=== PATIENT | female | born 1975 | race Caucasian/White ===

== ENCOUNTER 2019-09-09 08:51 | Outpatient (CLI) | payer SELFPAY ==
--- NOTE | 2019-09-09 08:58 | US_ITS ---
WS: [id number] RIGHT UPPER QUADRANT ULTRASOUND HISTORY: CHRONIC HEPATITIS C W/O HEPATIC COMA COMPARISON: None available. Liver: 14.7 cm in length. Normal size and echogenicity with no intrahepatic dilatation. No mass. Gallbladder: Prior cholecystectomy. CBD: 4.2 mm Pancreas: Normal size and echogenicity. Right kidney: 12.1 cm in length. Normal echogenicity with no mass or hydronephrosis. Aorta and IVC: Unremarkable. No ascites. US/US gall bladder [id number] IMPRESSION: 1. Prior cholecystectomy. 2. No bile duct dilatation.
== END 2019-09-09 08:52 | disposition home or self-care (01) ==
LOC: RAD 08:55
PROVIDERS: Family Provider Nurse Practitioner; PCP Nurse Practitioner; Visit Provider Internal Medicine
DX: B18.2 Chronic viral hepatitis C (principal); Z90.49 Acquired absence of other specified parts of digestive tract
CPT/HCPCS: 76705

== ENCOUNTER 2019-09-15 15:53 | Outpatient (CLI) | payer OTHER, SELFPAY ==
--- NOTE | 2019-09-15 17:02 | XR_ITS ---
WS: [id number] Chest 2 views, 09/15/2019 Clinical Data: POSITIVE PPD SKIN TEST Comparison: Portable chest, 06/23/2019. Findings: No nodules, masses or effusions are seen. The heart is normal. The pulmonary vascularity is not increased. No pneumonia or pneumothorax is seen. There are calcified granulomas in both lungs. XR/XR chest 2V* [id number] Impression: Negative chest.
== END 2019-09-15 15:54 | disposition home or self-care (01) ==
LOC: RAD 15:54
PROVIDERS: Family Provider Nurse Practitioner; PCP Nurse Practitioner; Visit Provider Nurse Practitioner
DX: R76.11 Nonspecific reaction to tuberculin skin test without active tuberculosis (principal); R05 Cough
CPT/HCPCS: 71046

== ENCOUNTER → 2019-09-20 15:54 | Outpatient (BNVA) | payer OTHER, SELFPAY | PROVIDERS: Family Provider Nurse Practitioner; PCP Nurse Practitioner; Visit Provider Nurse Practitioner Family | DX: Z20.1 Contact with and (suspected) exposure to tuberculosis (principal) | CPT/HCPCS: 80053; 85025 ==

== ENCOUNTER 2019-10-20 17:03 | Emergency (ER) | payer SELFPAY ==
--- NOTE | 2019-10-20 17:40 | CTR_ITS ---
PROCEDURE INFORMATION: Exam: CT Head Without Contrast Exam date and time: 10/20/2019 6:05 PM Age: 44 years old Clinical indication: Injury or trauma; Fall; Initial encounter; Concussion / head injury; Without loss of consciousness TECHNIQUE: Imaging protocol: Computed tomography of the head without contrast. Total DLP: 1742.21 mGy-cm Radiation optimization: All CT scans at this facility use at least one of these dose optimization techniques: automated exposure control; mA and/or kV adjustment per patient size (includes targeted exams where dose is matched to clinical indication); or iterative reconstruction. COMPARISON: CT head wo con* [id number] 06/23/2019 3:17 PM FINDINGS: Brain: Normal. No hemorrhage. Unremarkable white matter. No mass effect. Ventricles: Normal. No ventriculomegaly. Bones/joints: Unremarkable. No acute fracture. Sinuses: There is mild mucosal thickening in the sinuses. Mastoid air cells: Visualized mastoid air cells are well aerated. Soft tissues: Unremarkable. CT/CT head wo con* [id number] IMPRESSION: No acute intracranial abnormality. Radiation Dose CTDIVOL = (mGy): DLP = 1742.21 (mGy-cm)
[2019-10-20 18:00] LABS: Basophils # 0.1 10^3/uL (0.0-0.1); Eosinophils # 0.4 10^3/uL (0.0-0.8); Eosinophils % 5.5 %; Hematocrit 37.1 % (37.0-47.0); Hemoglobin 11.7 g/dL (11.5-15.3); Lymphocytes # 1.7 10^3/uL (0.8-4.8); Lymphocytes % 24.9 %; Mean Corpuscular HGB Conc 31.5 g/dL (30.0-36.0); Mean Corpuscular Hemoglobin 23.2 pg (28.0-34.0); Mean Corpuscular Volume 73.6 fL (81-99); Mean Platelet Volume 10.2 fL (7.4-10.4); Monocytes # 0.7 10^3/uL (0.2-0.9); Monocytes % 10.4 %; Neutrophils # 3.9 10^3/uL (1.8-7.7); Neutrophils % 58.1 %; Nucleated Red Blood Cells % 0 %; Platelet Count 425 10^3/cmm (130-400); Red Blood Count 5.04 10^6/uL (4.1-5.3); Red Cell Distribution Width 17.2 % (12.1-15.1); White Blood Count 6.7 10^3/uL (4.0-10.0)
[2019-10-20 18:06] VITALS: BP 126/102; PULSE 103; RESP 16; O2SAT 97; BMI 35.5
[2019-10-20 18:15] LABS: Alanine Aminotransferase 68 U/L (0-33); Albumin Level 4.6 g/dL (3.5-5.2); Alkaline Phosphatase 78 IU/L (35-105); Anion Gap 18.8 (5-19); Aspartate Amino Transferase 46 U/L (0-32); Blood Urea Nitrogen 8 mg/dL (6-20); Calcium 9.6 mg/dL (8.5-10.5); Carbon Dioxide 20 mmol/L (22-29); Chloride 104 mmol/L (98-107); Creatinine Clr Calc Pharmacy 124.7781; Globulin 3.7 g/dL (1.3-4.6); Glomerular Filtration Rate 91.8 mL/min (90-130); Glucose 117 mg/dL (65-115); Lipase 19 U/L (13-60); Potassium 3.8 mmol/L (3.5-5.1); Sodium 139 mmol/L (136-145); Total Bilirubin 0.3 mg/dL (0.15-1.2); Total Protein 8.3 g/dL (6.6-8.7)
[2019-10-20] MEDS: ondansetron 2 mg/ML SDV 2 mL 4 MG IVP (18:16)
[2019-10-20] MEDS: sodium chloride 0.9% 1,000 ML 999 ML IV ×2 (18:16→18:18)
[2019-10-20 18:24] VITALS: BP 165/100; PULSE 92; RESP 18; TEMP 37.4; O2SAT 98
--- NOTE | 2019-10-20 18:24 | W.ED.GENADLT ---
HPI - General Adult General: Chief complaint: General Medical Stated complaint: Dehydration Time Seen by Provider: 10/20/19 17:40 Source: patient Mode of arrival: ambulatory Limitations: no limitations History of Present Illness: HPI narrative: 44-year-old female that was recently diagnosed with possible tuberculosis. She states that she is started on meds for TB and they have been making her ill. She states she had decreased appetite along with nausea and feels like she is very dehydrated. She was sent here for IV fluids. Patient while waiting room had a seizure. She states she does have a history of seizures. Patient is currently postictal and a slight confusion but is able answer all my questions. She did hit her head when she had a seizure. Denies any worsening or improving factors. Associated symptoms: Reports confusion, nausea and vomiting; Deny chest pain, dyspnea, headache(s) or rash Review of Systems Const: Denies: fever, chills, body aches or change in appetite Eyes: Denies: blurry vision or eye discomfort ENMT: Denies: throat pain or dental pain Card: Denies: chest pain Resp: Denies: shortness of breath GI: Reports: nausea and vomiting; Denies: abdominal pain or diarrhea : Denies: painful urination Musc: Denies: neck pain or back pain Skin/Breast: Denies: rash Neuro: Reports: confusion; Denies: headache Psych: Denies: depression Satish/Lymph: Denies: easy bruising All/Imm: Denies: hives PFSH ED PFSH: Family History Family/Other Brain aneurysm Father Hypertension Social History Smoking and tobacco status: current every day smoker cigarettes Packs smoked per day: 0.5 Years cigarettes smoked: 35 Second hand smoke exposure: No Alcohol intake: never Lives independently: Yes Household members: significant other Housing: House Marital status: Legally service: No Current occupational status: employed Current occupation: [employer] Current occupational exposures/hazards: Yes History of recent travel: No Current gender identity: Female Physical Exam Const: COMMON NORMALS: no apparent distress, oriented x3 and healthy appearing HENMT: COMMON NORMALS: normocephalic and head/scalp atraumatic HEAD & SCALP: normocephalic and atraumatic Eye: COMMON NORMALS: PERRL and EOMs intact bilaterally PUPIL: Yes PERRL Neck/C-Spine: COMMON NORMALS: full ROM and supple Chest: COMMONS NORMALS: inspection of chest normal and palpation of chest normal Resp: COMMON NORMALS: normal respiratory effort, no retractions, no use of accessory muscles and clear to auscultation bilaterally AUSCULTATION: clear to auscultation bilaterally Cardio: COMMON NORMALS: regular rate, regular rhythm and no murmurs RATE: regular rate RHYTHM: regular rhythm GI: COMMON NORMALS: normal to inspection, nondistended, normoactive bowel sounds, soft to palpation, non-tender and no masses PALPATION: Yes soft Extremity: COMMON NORMALS: normal to inspection and full ROM Neuro: COMMON NORMALS: oriented x3, moves all extremities and no focal motor deficits Psych: COMMON NORMALS: mental status grossly normal, thought process normal and cooperative THOUGHT PROCESS: normal thought process Skin: COMMON NORMALS: no rashes or lesions noted and no wounds GENERAL SKIN EXAM: no rashes or lesions noted Course Vital Signs: Vital signs: Vital Signs Temperature 99.4 F 10/20/19 18:24 Pulse Rate 80 10/20/19 20:40 Respiratory Rate 19 H 10/20/19 20:40 Blood Pressure 161/79 10/20/19 20:40 Pulse Oximetry 96 10/20/19 20:40 MDM - General Adult MDM Narrative: Medical decision making narrative: Patient presents here with nausea and vomiting likely due to her medications treating her possible TB. Patient feels much improved here after IV fluids. She also had a seizure in the waiting room and has a history of seizures. Patient's blood work and CT head are normal. She had a headache after a seizure that is likely from her seizure. Patient is to follow-up with primary care doctor in 3 to 5 days return if worsening. Lab Data: Labs: Lab Results 10/20/19 10/20/19 Range/Units 17:45 17:45 WBC 6.7 (4.0-10.0) 10^3/ uL RBC 5.04 (4.1-5.3) 10^6/u L Hgb 11.7 (11.5-15.3) g/dL Hct 37.1 (37.0-47.0) % MCV 73.6 L (81-99) fL MCH 23.2 L (28.0-34.0) pg MCHC 31.5 (30.0-36.0) g/dL RDW 17.2 H (12.1-15.1) % Plt Count 425 H (130-400) 10^3/c mm MPV 10.2 (7.4-10.4) fL Neut % (Auto) 58.1 % Lymph % (Auto) 24.9 % [place] % (Auto) 10.4 % Eos % (Auto) 5.5 % Baso % (Auto) 1.0 % Neut # (Auto) 3.9 (1.8-7.7) 10^3/u L Lymph # (Auto) 1.7 (0.8-4.8) 10^3/u L [place] # (Auto) 0.7 (0.2-0.9) 10^3/u L Eos # (Auto) 0.4 (0.0-0.8) 10^3/u L Baso # (Auto) 0.1 (0.0-0.1) 10^3/u L Nucleated RBC % (a uto) 0 % Nucleated RBCs # 0.0 /100WBC Sodium 139 (136-145) mmol/L Potassium 3.8 (3.5-5.1) mmol/L Chloride 104 (98-107) mmol/L Carbon Dioxide 20 L (22-29) mmol/L Anion Gap 18.8 (5-19) BUN 8 (6-20) mg/dL Creatinine 0.7 (0.5-0.9) mg/dL GFR Calculation 91.8 (90-130) mL/min Glucose 117 H (65-115) mg/dL Calcium 9.6 (8.5-10.5) mg/dL Total Bilirubin 0.3 (0.15-1.2) mg/dL AST 46 H (0-32) U/L ALT 68 H (0-33) U/L Alkaline Phosphata se 78 (35-105) IU/L Total Protein 8.3 (6.6-8.7) g/dL Albumin 4.6 (3.5-5.2) g/dL Globulin 3.7 (1.3-4.6) g/dL Lipase 19 (13-60) U/L Imaging Data^: CXR: Attestation: I personally reviewed and interpreted this imaging study as follows: My impression: no acute abnormality CT Head: Attestation: I personally reviewed and interpreted this imaging study as follows: Radiologist's impression: CT Scan Report Signed Patient: Felicita Vivar Unit #: [id number] : 1975 Age/Sex: 44 / F ADM Date: 10/20/19 Loc: ER Room/Bed: Attending Dr: Ordering Provider/Ordering MD: Bere Dewitt MD Date of Service: 10/20/19 Procedure(s): CT head wo con* [id number] Accession Number(s): [id number] Report Number: [id number] PROCEDURE INFORMATION: Exam: CT Head Without Contrast Exam date and time: 10/20/2019 6:05 PM Age: 44 years old Clinical indication: Injury or trauma; Fall; Initial encounter; Concussion / head injury; Without loss of consciousness TECHNIQUE: Imaging protocol: Computed tomography of the head without contrast. Total DLP: 1742.21 mGy-cm Radiation optimization: All CT scans at this facility use at least one of these dose optimization techniques: automated exposure control; mA and/or kV adjustment per patient size (includes targeted exams where dose is matched to clinical indication); or iterative reconstruction. COMPARISON: CT head wo con* [id number] 06/23/2019 3:17 PM FINDINGS: Brain: Normal. No hemorrhage. Unremarkable white matter. No mass effect. Ventricles: Normal. No ventriculomegaly. Bones/joints: Unremarkable. No acute fracture. Sinuses: There is mild mucosal thickening in the sinuses. Mastoid air cells: Visualized mastoid air cells are well aerated. Soft tissues: Unremarkable. CT/CT head wo con* [id number] IMPRESSION: No acute intracranial abnormality. Discharge Plan Discharge Patient Disposition: Home, Self-Care Clinical Impression: Seizure Vomiting Qualifiers: Vomiting type: unspecified Vomiting Intractability: non-intractable Nausea presence: with nausea Qualified Code(s): R11.2 - Nausea with vomiting, unspecified Condition: Stable Prescriptions: New Zofran 4 mg tablet 4 mg PO QID PRN (Reason: nausea and vomiting) Qty: 14 RF: 0 No Action ethambutol 400 mg tablet 1,600 mg PO Q24H 60 Days Qty: 240 RF: 0 pyrazinamide 500 mg tablet 2 gm PO DAILY 60 Days Qty: 240 RF: 0 rifampin 300 mg capsule 600 mg PO DAILY 60 Days Qty: 120 RF: 0 isoniazid 300 mg tablet 300 mg PO DAILY Qty: 60 RF: 0 pyridoxine (vitamin B6) 50 mg tablet 50 mg PO DAILY 60 Days Qty: 60 RF: 0 meclizine 25 mg tablet 25 mg PO BID PRN (Reason: dizziness) Qty: 60 RF: 0 Discharge Orders: Discharge Order (Routine); Ordered 10/20/19 Ordered By: Bere Dewitt Referrals: Lizeth Arriaga FNP [Primary Care Provider] - Discharge Diet: Advance as tolerated Discharge Activity: Resume usual activity Patient Instructions: Acute Nausea and Vomiting (ED), Recurrent Seizures Adult (ED) Discharge Date/Time: 10/20/19 20:41 Coding Level of Care Code ED Financial Operations Consultant for Blanche Fwd Exam Comprehensive
--- NOTE | 2019-10-20 18:28 | XR_ITS ---
WS: [id number] XR chest 1V portable [id number] REASON FOR EXAM: cough FINDINGS: The heart and mediastinal interfaces normal. The azygos region shows a lymph node partially calcified. There are scattered granulomas particularly in the right lung. There is no pneumonia, congestive heart failure, or pleural effusion. XR/XR chest 1V portable [id number] IMPRESSION: Calcified azygous lymph node with granulomas Otherwise negative chest.
[2019-10-20 18:50] VITALS: PULSE 90; RESP 18; O2SAT 99
[2019-10-20 19:27] VITALS: RESP 16
[2019-10-20] MEDS: morphine 4 mg/mL SDV 1 mL IVP (19:27)
[2019-10-20] MEDS: diphenhydrAMINE 50 mg/mL SDV 1mL IVP (20:29)
[2019-10-20] MEDS: ketorolac 30 mg/mL INJ 15 MG IVP (20:29)
[2019-10-20] MEDS: metoclopramide 5 mg/mL SDV 2 mL 10 MG IVP (20:30)
[2019-10-20 20:40] VITALS: BP 161/79; PULSE 80; RESP 19; O2SAT 96
== END 2019-10-20 20:41 | disposition home or self-care (01) ==
PROVIDERS: Emergency Provider Emergency Medicine; Family Provider Nurse Practitioner; PCP Nurse Practitioner
DX: R56.9 Unspecified convulsions (principal); R11.2 Nausea with vomiting, unspecified; R51 Headache; F17.210 Nicotine dependence, cigarettes, uncomplicated; S09.90XA Unspecified injury of head, initial encounter; W19.XXXA Unspecified fall, initial encounter
CPT/HCPCS: 12345; 36415; 70450; 71045; 80053; 83690; 85025; 96361; 96374; 96375; 99282; 99284; J1200; J1885; J2270; J2405; J2765; J7030

== ENCOUNTER → 2020-05-11 15:31 | Outpatient (BNVA) | payer OTHER, SELFPAY | PROVIDERS: Family Provider Nurse Practitioner; PCP Nurse Practitioner; Visit Provider Nurse Practitioner Family | DX: Z20.828 Contact with and (suspected) exposure to other viral communicable diseases (principal) | CPT/HCPCS: 87635 ==

== ENCOUNTER 2021-05-17 12:24 | Outpatient (CLI) | payer BC, SELFPAY ==
--- NOTE | 2021-05-17 12:35 | US_ITS ---
WS: [id number] Complete ABDOMINAL ULTRASOUND HISTORY: RLQ ABDOMINAL PAIN COMPARISON: 09/09/2019 Liver: 14.8 cm in length. Liver is normal size and echogenicity with no mass or intrahepatic dilatati on. Gallbladder: Prior cholecystectomy. Pancreas: Normal size and echogenicity. CBD: 0.3 cm. Right kidney: 12.4 cm x 4.6 cm x 5.3 cm. No mass, cortical thickening or hydronephrosis. Left kidney: 11.8 cm x 4.5 cm x 4.8 cm. No mass, cortical thickening or hydronephrosis. Spleen: Normal size and echogenicity. Abdominal aorta and IVC are within normal limits. No ascites. US/US abdomen complete* [id number] IMPRESSION: 1. Prior cholecystectomy. 2. No bile duct dilatation.
== END 2021-05-17 12:25 | disposition home or self-care (01) ==
PROVIDERS: PCP Nurse Practitioner; Visit Provider Nurse Practitioner Family
DX: R10.31 Right lower quadrant pain (principal); Z90.49 Acquired absence of other specified parts of digestive tract
CPT/HCPCS: 76700

== ENCOUNTER → 2021-07-24 15:39 | Outpatient (BNVA) | payer BC, SELFPAY | PROVIDERS: PCP Nurse Practitioner; Visit Provider Internal Medicine | DX: Z00.00 Encounter for general adult medical examination without abnormal findings (principal); B19.20 Unspecified viral hepatitis C without hepatic coma | CPT/HCPCS: 80053; 82105; 86705; 86706; 87340; 87522 ==

== ENCOUNTER 2021-09-30 08:56 | Emergency (ER) | payer BC, SELFPAY ==
[2021-09-30] VITALS (10 sets, daily range): BP systolic 120–156; BP diastolic 58–94; PULSE 53–98; RESP 12–23; TEMP 37; O2SAT 96–99; BMI 29.8
--- NOTE | 2021-09-30 08:57 | CTR_ITS ---
PROCEDURE INFORMATION: Exam: CT Head Without Contrast Exam date and time: 09/30/2021 8:57 AM Age: 46 years old Clinical indication: Speech disturbance and weakness, extremity; Left; Additional info: CVA TECHNIQUE: Imaging protocol: Computed tomography of the head without contrast. Radiation optimization: All CT scans at this facility use at least one of these dose optimization techniques: automated exposure control; mA and/or kV adjustment per patient size (includes targeted exams where dose is matched to clinical indication); or iterative reconstruction. Other technique: STROKE PROTOCOL was implemented. COMPARISON: CT head wo con* [id number] 10/20/2019 7:41 PM RADIATION DOSE METRICS: Total DLP (mGy-cm): 972.73 FINDINGS: Brain: Normal. No hemorrhage. Unremarkable white matter. No mass effect. Cerebral ventricles: No ventriculomegaly. Paranasal sinuses: Visualized sinuses are unremarkable. No fluid levels. Mastoid air cells: Visualized mastoid air cells are well aerated. Bones/joints: Unremarkable. No acute fracture. Soft tissues: Unremarkable. CT/CT head wo con* [id number] IMPRESSION: No acute intracranial abnormality. ASSESSMENT: ASPECTS ([place] Stroke Program Early CT Score) is 10.
--- NOTE | 2021-09-30 08:57 | XRR_ITS ---
PROCEDURE INFORMATION: Exam: XR Chest Exam date and time: 09/30/2021 8:57 AM Age: 46 years old Clinical indication: Other: Weakness; Additional info: MARCH TECHNIQUE: Imaging protocol: XR of the chest. Views: 1 view. COMPARISON: CR XR chest 1V portable [id number] 10/20/2019 6:53 PM FINDINGS: Lungs: No focal airspace disease. Pleural spaces: Unremarkable. No pleural effusion. No pneumothorax. Heart/Mediastinum: Cardiomediastinal silhouette is within normal limits. Bones/joints: Unremarkable. XR/XR chest 1V portable [id number] IMPRESSION: No acute cardiopulmonary abnormality.
--- NOTE | 2021-09-30 08:58 | ECG_ITS ---
[facility] Test Date: 2021-09-30 Pat Name: Felicita Reyes Department: Room: Gender: Female Engineering Teacher: : 1975 Requested By: Bere Dewitt Order Number: [id number] Toby MD: Mejia Wilkerson M.D. Measurements Intervals [place] Rate: 61 P: 6 LA: 151 QRS: 19 QRSD: 101 T: 24 QT: 399 QTc: 405 Interpretive Statements SINUS RHYTHM POSSIBLE INFERIOR MYOCARDIAL INFARCTION , PROBABLY OLD [30 ms Q WAVE IN II/aVF] No previous ECG available for comparison Electronically Signed On 10-01-2021 8:51:54 CONSOLE ATTENDANT by Mejia Wilkerson M.D. [email or web address]
--- NOTE | 2021-09-30 09:09 | ED_ITS ---
HPI - Neuro Symptoms/Deficit General: Chief Complaint: ER Hold Stated Complaint: LEFT FACIAL DROOP Time Seen by Provider: 09/30/21 08:57 Source: patient and EMS Mode of arrival: EMS Limitations: no limitations History of Present Illness: 46-year-old female states that she went to bed at 9:30 PM last night. States when she woke up this morning she is having weakness to her left side also some difficulty speaking and family noticed left-sided facial droop. She states she have a hard time walking because she feels like her left leg is weak she is having some word finding difficulty here as well. S he does have some facial droop. She denies any chest pain denies headache currently denies any history of stroke in the past. Associated symptoms: Deny chest pain, headache(s), nausea or vomiting Review of Systems Const: Denies: fever(s), chills, body aches or change in appetite Eyes: Denies: blurry vision or eye discomfort ENMT: Denies: throat pain or dental pain Card: Denies: chest pain Resp: Denies: dyspnea GI: Denies: abdominal pain, nausea, vomiting or diarrhea : Denies: dysuria Musc: Denies: neck pain or back pain Skin/Breast: Denies: rash Neuro: Reports: weakness in extremities and Slurred speech present; Denies: headache(s) Psych: Denies: depression Satish/Lymph: Denies: easy bruising All/Imm: Denies: urticaria PFSH ED PFSH: Family History Family/Other Brain aneurysm Father Hypertension Social History Smoking and tobacco status: current every day smoker cigarettes Packs smoked per day: 0.5 Years cigarettes smoked: 35 Second hand smoke exposure: No Alcohol intake: never Lives independently: Yes Household members: significant other Housing: House Marital status: Legally service: No Current occupational status: employed Current occupation: [employer] Current occupational exposures/hazards: Yes History of recent travel: No Current gender identity: Female NIH stroke score NIHSS: Level Of Consciousness - 1a: 0 Level Of Consciousness Questions - 1b: Both Correct Level Of Consciousness Commands - 1c: Both Correct Best Gaze - 2: Normal Visual [place] - 3: No Visual Loss Facial Palsy - 4: Partial Paralysis Motor Arm Right - 5: No Drift Motor Arm Left - 5: Drift Motor Leg Right - 6: No Drift Motor Leg Left - 6: Effort Against [place] Limb Ataxia - 7: Absent Sensory - 8: Normal Best Language - 9: No Aphasia Dysarthia - 10: Mild/Moderate Dysarthia Extinction And Inattention - 11: 0 Score: Total Score: 6 Physical Exam Const: COMMON NORMALS: no acute distress, patient oriented x3, healthy appearing and alert ORIENTATION/CONSCIOUSNESS: Yes oriented to person and Yes oriented to place HENMT: COMMON NORMALS: normocephalic and atraumatic HEAD & SCALP: normocephalic and atraumatic Eye: COMMON NORMALS: Equal, round and reactive pupils present and EOMs intact bilaterally PUPIL: Yes Equal, round and reactive pupils present Neck/C-Spine: COMMON NORMALS: full ROM and supple Chest: COMMONS NORMALS: normal inspection of the chest and normal palpation of entire chest wall Resp: COMMON NORMALS: normal respiratory effort, No retractions, No use of accessory muscles and clear to auscultation bilaterally AUSCULTATION: clear to auscultation bilaterally Cardio: COMMON NORMALS: regular rate, regular rhythm and No murmurs present (Cardio) RATE: regular rate RHYTHM: regular rhythm GI: COMMON NORMALS: Normal to inspection, nondistended, normoactive bowel sounds present, Soft to palpation, non-tender and no masses PALPATION: Yes Soft to palpation Extremity: COMMON NORMALS: normal to inspection and full ROM Neuro: COMMON NORMALS: patient oriented x3 SENSORIUM/ORIENTATION: Yes alert, Yes oriented to person and Yes oriented to place Psych: COMMON NORMALS: mental status grossly normal, Normal thought process present and cooperative THOUGHT PROCESS: Normal thought process present Skin: COMMON NORMALS: no rashes or lesions noted and no wounds GENERAL SKIN EXAM: no rashes or lesions noted Course Vital Signs: Vital signs: Vital Signs Temperature 98.6 F 09/30/21 09:06 Pulse Rate 61 09/30/21 10:36 Respiratory Rate 12 09/30/21 10:36 Blood Pressure 120/75 09/30/21 10:36 Pulse Oximetry 96 09/30/21 10:36 MDM - Neuro Symptoms/Deficit Medical Decision Making Patient presents here for possible stroke she does have left-sided facial droop along with left-sided weakness. She does have a mild headache here as well as could be a complex migraine she does have a history of seizures as well but no seizures today. She did start develop a headache while here but knows history of complex migraines head CT here is normal spoke to hospitalist will admit at this time. Lab Data : 09/30/21 09:25 09/30/21 09:25 Radiology Impressions Chest X-Ray 09/30/21 08:57 IMPRESSION: No acute cardiopulmonary abnormality. Head CT 09/30/21 08:57 IMPRESSION: No acute intracranial abnormality. ASSESSMENT: ASPECTS ([place] Stroke Program Early CT Score) is 10. Laboratory Results WBC 6.8 10^3/uL (4.0-10.0) 09/30/21 09:25 RBC 5.02 10^6/uL (4.1-5.3) 09/30/21 09:25 Hgb 12.6 g/dL (11.5-15.3) 09/30/21:25 Hct 40.0 % (37.0-47.0) 09/30/21:25 MCV 79.7 fl (81-99) L 09/30/21 09:25 MCH 25.1 pg (28.0-34.0) L 09/30/21 09:25 MCHC 31.5 g/dL (30.0-36.0) 09/30/21 09:25 RDW 17.7 % (12.1-15.1) H 09/30/21 09:25 Plt Count 350 10^3/cmm (130-400) 09/30/21:25 MPV 10.2 fL (7.4-10.4) 09/30/21 09:25 Neut % (Auto) 53.0 % 09/30/21:25 Lymph % (Auto) 26.9 % 09/30/21 09:25 [place] % (Auto) 9.3 % 09/30/21:25 Eos % (Auto) 9.3 % 09/30/21 09:25 Baso % (Auto) 1.2 % 09/30/21 09:25 Neut # (Auto) 3.61 10^3/uL (1.8-7.7) 09/30/21 09:25 Lymph # (Auto) 1.8 10^3/uL (0.8-4.8) 09/30/21 09:25 [place] # (Auto) 0.6 10^3/uL (0.2-0.9) 09/30/21 09:25 Eos # (Auto) 0.6 10^3/uL (0.0-0.8) 09/30/21 09:25 Baso # (Auto) 0.1 10^3/uL (0.0-0.1) 09/30/21 09:25 Nucleated RBC % (auto) 0 % 09/30/21 09:25 Nucleated RBCs # 0.0 /100WBC 09/30/21 09:25 PT 11.90 SECONDS (12.1-14.9) L 09/30/21 09:25 INR 0.85 (0.8-1.2) 09/30/21 09:25 Sodium 138 mmol/L (136-145) 09/30/21 09:25 Potassium 4.7 mmol/L (3.5-5.1) 09/30/21 09:25 Chloride 103 mmol/L (98-107) 09/30/21 09:25 Carbon Dioxide 28 mmol/L (22-29) 09/30/21 09:25 Anion Gap 11.7 (5-19) 09/30/21 09:25 BUN 12 mg/dL (6-20) 09/30/21 09:25 Creatinine 0.6 mg/dL (0.5-0.9) 09/30/21 09:25 GFR Calculation 108.6 mL/min (90-130) 09/30/21 09:25 Glucose 92 mg/dL (65-115) 09/30/21 09:25 Calculated Osmolality 285 mOsm/kg (285-295) 09/30/21 09:25 Calcium 9.1 mg/dL (8.5-10.5) 09/30/21 09:25 Total Bilirubin 0.3 mg/dL (0.15-1.2) 09/30/21 09:25 AST 42 U/L (0-32) H 09/30/21 09:25 ALT 57 U/L (0-33) H 09/30/21 09:25 Alkaline Phosphatase 63 IU/L (35-105) 09/30/21 09:25 Total Protein 7.0 g/dL (6.6-8.7) 09/30/21 09:25 Albumin 4.3 g/dL (3.5-5.2) 09/30/21 09:25 Globulin 2.7 g/dL (1.3-4.6) 09/30/21 09:25 Urine Color Yellow (Yellow) 09/30/21 09:20 Urine Appearance Clear (CLEAR) 09/30/21 09:20 Urine pH 7 (5-7) 09/30/21 09:20 Ur Specific [place] 1.005 (1.005-1.030) 09/30/21 09:20 Urine Protein Neg (Negative) 09/30/21 09:20 Urine Glucose (UA) Norm (Normal) 09/30/21 09:20 Urine Ketones Negative (Negative) 09/30/21 09:20 Urine Blood 3+ (Negative) H 09/30/21 09:20 Urine Nitrate Negative (Negative) 09/30/21 09:20 Urine Bilirubin Neg (Negative) 09/30/21 09:20 Urine Urobilinogen Norm mg/dL (Negative) 09/30/21 09:20 Ur Leukocyte Esterase Negative (Negative) 09/30/21 09:20 Urine RBC 0-4 /hpf (0-2) H 09/30/21 09:20 Urine WBC None /hpf (0-5) 09/30/21 09:20 Ur Squamous Epith Cells 5-10 /hpf (0-5) H 09/30/21 09:20 Amorphous Sediment Not Reportable 09/30/21 09:20 Urine Bacteria Trace /hpf (NONE) 09/30/21 09:20 EKG Data EKG 1: I personally reviewed and interpreted this EKG as follows: EKG interpretation date: 09/30/21 EKG interpretation time: 09:35 Interpretation: nsr hr [address] or t wave abnormalities qrs 101q tc 403 Discharge Plan Discharge Patient Disposition: Admitted As Inpatient Admit Provider: Cristina Hernandez Clinical Impression: Cerebrovascular accident Condition: Stable Coding Level of Care Code ED Checker Dump Grounds for Chg Fwd Exam Comprehensive
[2021-09-30 09:33] LABS: Basophils # 0.1 10^3/uL (0.0-0.1); Basophils % 1.2 %; Eosinophils # 0.6 10^3/uL (0.0-0.8); Eosinophils % 9.3 %; Hemoglobin 12.6 g/dL (11.5-15.3); Lymphocytes # 1.8 10^3/uL (0.8-4.8); Lymphocytes % 26.9 %; Mean Corpuscular HGB Conc 31.5 g/dL (30.0-36.0); Mean Corpuscular Hemoglobin 25.1 pg (28.0-34.0); Mean Corpuscular Volume 79.7 fl (81-99); Mean Platelet Volume 10.2 fL (7.4-10.4); Monocytes # 0.6 10^3/uL (0.2-0.9); Monocytes % 9.3 %; Neutrophils # 3.61 10^3/uL (1.8-7.7); Nucleated Red Blood Cells % 0 %; Platelet Count 350 10^3/cmm (130-400); Red Blood Count 5.02 10^6/uL (4.1-5.3); Red Cell Distribution Width 17.7 % (12.1-15.1); White Blood Count 6.8 10^3/uL (4.0-10.0)
[2021-09-30 09:46] LABS: INR 0.85 (0.8-1.2)
[2021-09-30] MEDS: aspirin 81 mg Chew Tablet 324 MG PO (09:51)
[2021-09-30] MEDS: metoclopramide 5 mg/mL SDV 2 mL 10 MG IVP (10:08)
[2021-09-30 10:13] LABS: Alanine Aminotransferase 57 U/L (0-33); Albumin Level 4.3 g/dL (3.5-5.2); Alkaline Phosphatase 63 IU/L (35-105); Blood Urea Nitrogen 12 mg/dL (6-20); Calcium 9.1 mg/dL (8.5-10.5); Carbon Dioxide 28 mmol/L (22-29); Chloride 103 mmol/L (98-107); Globulin 2.7 g/dL (1.3-4.6); Glomerular Filtration Rate 108.6 mL/min (90-130); Glucose 92 mg/dL (65-115); Osmolality Calculated 285 mOsm/kg (285-295); Sodium 138 mmol/L (136-145); Total Bilirubin 0.3 mg/dL (0.15-1.2)
[2021-09-30] MEDS: diphenhydrAMINE 50 mg/mL SDV 1mL IVP (10:14)
[2021-09-30 10:19] LABS: Add Urine Microscopic? YES; Bilirubin Urine Neg (Negative); Blood Urine 3+ (Negative); Glucose Urine UA Norm (Normal); Ketones Urine Negative (Negative); Leukocyte Esterase Urine Negative (Negative); Nitrate Urine Negative (Negative); Protein Urine Neg (Negative); Specific Gravity, Urine 1.005 (1.005-1.030); Urine Appearance Clear (CLEAR); Urine Color Yellow (Yellow); Urobilinogen Urine Norm (Negative); pH Urine 7 (5-7)
[2021-09-30 10:21] LABS: Bacteria Urine TRACE /hpf; RBC Urine 0-4 /hpf (0-2)
[2021-09-30 10:22] LABS: Add Urine Culture? No
[2021-09-30 10:50] LABS: Anion Gap 11.7 (5-19); Aspartate Amino Transferase 42 U/L (0-32); Potassium 4.7 mmol/L (3.5-5.1)
--- NOTE | 2021-09-30 11:07 | CTR_ITS ---
PROCEDURE INFORMATION: Exam: CT Angiography Head With Contrast, Arteriography Exam date and time: 09/30/2021 11:07 AM Age: 46 years old Clinical indication: Headache; Additional info: Stroke TECHNIQUE: Imaging protocol: Computed tomography angiography of the head with contrast. Exam focused on the arteries. 3D rendering (Not supervised by radiologist): MIP and/or 3D reconstructed images were created by the technologist. Radiation optimization: All CT scans at this facility use at least one of these dose optimization techniques: automated exposure control; mA and/or kV adjustment per patient size (includes targeted exams where dose is matched to clinical indication); or iterative reconstruction. Contrast material: OMNIPAQUE 350; Contrast volume: 95 ml; Contrast route: INTRAVENOUS (IV); COMPARISON: CT head wo con* [id number] 09/30/2021 9:02 AM RADIATION DOSE METRICS: Total DLP (mGy-cm): 2425.98 FINDINGS: ANTERIOR CIRCULATION: Right internal carotid artery: Unremarkable. Intracranial segment is patent with no significant stenosis. No aneurysm. Right middle cerebral artery: Unremarkable. No occlusion or significant stenosis. No aneurysm. Right anterior cerebral artery: Unremarkable. No occlusion or significant stenosis. No aneurysm. Left internal carotid artery: Unremarkable. Intracranial segment is patent with no significant stenosis. No aneurysm. Left middle cerebral artery: Unremarkable. No occlusion or significant stenosis. No aneurysm. Left anterior cerebral artery: Unremarkable. No occlusion or significant stenosis. No aneurysm. POSTERIOR CIRCULATION: Right vertebral artery: Unremarkable. No occlusion or significant stenosis. No aneurysm. Left vertebral artery: Unremarkable. No occlusion or significant stenosis. No aneurysm. Basilar artery: Unremarkable. No occlusion or significant stenosis. No aneurysm. Right posterior cerebral artery: Unremarkable. No occlusion or significant stenosis. No aneurysm. Left posterior cerebral artery: Unremarkable. No occlusion or significant stenosis. No aneurysm. Brain: No definite mass, mass effect, or midline shift. Cerebral ventricles: No ventriculomegaly. Bones/joints: Unremarkable. No acute fracture. Soft tissues: Unremarkable. PROCEDURE INFORMATION: Exam: CT Angiography Neck With Contrast Exam date and time: 09/30/2021 11:07 AM Age: 46 years old Clinical indication: Headache; Additional info: Stroke TECHNIQUE: Imaging protocol: Computed tomography angiography of the neck with contrast. 3D rendering (Not supervised by radiologist): MIP and/or 3D reconstructed images were created by the technologist. Radiation optimization: All CT scans at this facility use at least one of these dose optimization techniques: automated exposure control; mA and/or kV adjustment per patient size (includes targeted exams where dose is matched to clinical indication); or iterative reconstruction. Contrast material: OMNIPAQUE 350; Contrast volume: 95 ml; Contrast route: INTRAVENOUS (IV); COMPARISON: CT head wo con* [id number] 09/30/2021 9:02 AM RADIATION DOSE METRICS: Total DLP (mGy-cm): 2425.98 FINDINGS: Right common carotid artery: No stenosis. No dissection or occlusion. Right internal carotid artery: No stenosis of the extracranial segment. No dissection or occlusion. Right external carotid artery: No occlusion or stenosis of the origin. Left common carotid artery: No stenosis. No dissection or occlusion. Left internal carotid artery: No stenosis of the extracranial segment. No dissection or occlusion. Left external carotid artery: No occlusion or stenosis of the origin. Right vertebral artery: Right dominant vertebral artery. No stenosis. No dissection or occlusion. Left vertebral artery: No stenosis. No dissection or occlusion. Soft tissues: Normal. No significant soft tissue swelling. Bones/joints: No acute fracture. CT/CT angio headneck* [id number] IMPRESSION: No large vessel stenosis or occlusion. IMPRESSION: No stenosis or occlusion. REFERENCES: NASCET CRITERIA. The degree of internal carotid artery stenosis is based on NASCET criteria. Normal is no stenosis. Mild is less than 50% stenosis. Moderate is 50-69% stenosis. Severe is 70% to 99% stenosis. Total occlusion is no detectable patent lumen.
--- NOTE | 2021-09-30 11:11 | PM.HP ---
Providers/Chief Complaint Admitting Physician: Cristina Hernandez MD Primary Care Provider: LAKESHIA Fink Chief Complaint: LEFT FACIAL DROOP History of Present Illness Felicita Reyes is a 46 year old female Medications/Allergies Home Medications Medication Instructions Recorded Confirmed Last Taken Type sofosbuvir 400 mg-velpatasvir 100 1 tab PO DAILY 84 Days #28 tab 07/27/21 07/27/21 Unknown Rx mg tablet (Epclusa) Allergies Allergy/AdvReac Type Severity Reaction Status Date / Time adhesive tape AdvReac Rash Verified 07/24/21 15:55 morphine AdvReac Mood Verified 07/24/21 15:55 changes PFSH Acute PFSH: Medical History (Updated 09/30/21 @ 12:33 by Cristina Hernandez MD) Hepatitis C PPD positive URI, acute Surgical History (Updated 09/30/21 @ 12:33 by Cristina Hernandez MD) Hx of section Hx of cholecystectomy Family History Family/Other Brain aneurysm Father Hypertension Social History Smoking and tobacco status: current every day smoker cigarettes Packs smoked per day: 0.5 Years cigarettes smoked: 35 Second hand smoke exposure: No Alcohol intake: never Lives independently: Yes Household members: significant other Housing: House Marital status: Legally service: No Current occupational status: employed Current occupation: [employer] Current occupational exposures/hazards: Yes History of recent travel: No Current gender identity: Female Vitals/I&O/Wt Last Vital Signs Temp 98.6 F 09/30/21 09:06 Pulse 61 09/30/21 10:36 Resp 12 09/30/21 10:36 BP 120/75 09/30/21 10:36 Pulse Ox 96 09/30/21 10:36 Weight last 48 hrs Weight 83.96 kg Data : 09/30/21 09:25 09/30/21 09:25 A&P Assessment and plan (1) Cerebrovascular accident: Status: Acute Coding Level of Care Code 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
[2021-09-30] MEDS: iohexol 350 mg/mL 100 mL Btl IV (12:13)
== END 2021-09-30 14:25 | disposition home or self-care (01) ==
LOC: ER 09:59 → ER IP 11:12
PROVIDERS: Emergency Provider Emergency Medicine; PCP Nurse Practitioner
DX: I63.9 Cerebral infarction, unspecified (principal); F17.210 Nicotine dependence, cigarettes, uncomplicated
CPT/HCPCS: 36415; 70450; 70496; 70498; 71045; 80053; 81001; 85025; 85610; 93005; 96374; 96375; 99284; J1200; J2765; Q9967

== ENCOUNTER → 2021-10-24 11:07 | Outpatient (BNVA) | payer BC, SELFPAY | PROVIDERS: PCP Nurse Practitioner; Referring Provider Nurse Practitioner Family; Visit Provider Orthopaedic Surgery | DX: M79.641 Pain in right hand (principal) | CPT/HCPCS: 73130 ==

== ENCOUNTER → 2022-05-21 11:27 | Outpatient (BNVA) | payer BC, SELFPAY | PROVIDERS: PCP Nurse Practitioner Family; Visit Provider Internal Medicine | DX: B19.20 Unspecified viral hepatitis C without hepatic coma (principal) | CPT/HCPCS: 87522 ==

== ENCOUNTER → 2022-08-28 13:00 | Outpatient (BNVA) | payer BC, SELFPAY | PROVIDERS: PCP Nurse Practitioner Family; Visit Provider Nurse Practitioner Women's Health | DX: Z12.4 Encounter for screening for malignant neoplasm of cervix (principal) | CPT/HCPCS: 87624 ==

== ENCOUNTER → 2022-09-27 10:34 | Outpatient (BNVA) | payer BC, SELFPAY | PROVIDERS: PCP Nurse Practitioner Family; Visit Provider Nurse Practitioner Women's Health | DX: N93.9 Abnormal uterine and vaginal bleeding, unspecified (principal) | CPT/HCPCS: 76830 ==

== ENCOUNTER → 2022-10-01 12:28 | Outpatient (BNVA) | payer BC, SELFPAY | PROVIDERS: PCP Nurse Practitioner Family; Visit Provider Nurse Practitioner Women's Health | DX: N93.9 Abnormal uterine and vaginal bleeding, unspecified (principal) | CPT/HCPCS: 84443; 85025; 88305 ==

== ENCOUNTER 2023-11-18 12:00 | Emergency (ER) | payer BC, SELFPAY ==
[2023-11-18 12:13] VITALS: BP 132/93; PULSE 79; RESP 17; TEMP 36.9; O2SAT 97; BMI 36.6
--- NOTE | 2023-11-18 13:12 | CT_ITS ---
WS: [id number] CT HEAD TECHNIQUE: Noncontrast CT of the head obtained from the skullbase to the vertex. CLINICAL INFORMATION: Headache, balance issues for 2 weeks COMPARISON: 2021 DLP: 1069.[address] scans at [facility] use at least one of these dose optimization techniques: automated e xposure control; mA and/or kV adjustment per patient size (includes targeted exams where dose is matc hed to clinical indication); or iterative reconstruction. FINDINGS: No evidence of intracranial hemorrhage or mass effect. Ventricular system and basal cisterns are walsh nt. No extra-axial fluid collections. No evidence of mass or mass effect. Normal tripp-white different iation. Paranasal sinuses and mastoid air cells are well aerated. .Normal visualized soft tissues. IMPRESSION: 1. No evidence of intracranial hemorrhage or mass effect. 2. No acute intracranial findings.
--- NOTE | 2023-11-18 13:13 | ED_ITS ---
HPI - Headache General: Chief Complaint: Headache Stated Complaint: head pains Time Seen by Provider: 11/18/23 13:09 History of Present Illness: 48-year-old female with a history of hyp ertension and occasional migraines who presents the emergency room with a headache for about 2 weeks now. She says she been to her primary care provider no change around some of her medications and she went to an eye doctor who had done some testing and said that her eyes were normal. She says she has been off balance. She has photophobia. Some nausea. No vomiting. No focal motor deficits. No altered mental status. No fevers. No cough. Review of Systems Narrative: Constitutional symptoms: Negative except as documented in HPI. Skin symptoms: Negative except as documented in HPI. Eye symptoms: Negative except as documented in HPI. ENMT symptoms: Negative except as documented in HPI. Respiratory symptoms: Negative except as documented in HPI. Cardiovascular symptoms: Negative except as documented in HPI. Gastrointestinal symptoms: Negative except as documented in HPI. Genitourinary symptoms: Negative except as documented in HPI. Musculoskeletal symptoms: Negative except as documented in HPI. Neurologic symptoms: Negative except as documented in HPI. Psychiatric symptoms: Negative except as documented in HPI. Endocrine symptoms: Negative except as documented in HPI. [facility] PFSH: Medical History Hepatitis C Treated by Katharine--- now negative 08/2022 Hypertension No pertinent past medical history neghx: dm,thyroid,dvt/pe PCP: Akanksha Mcgraw PPD positive neg sputum after tx Surgical History Abscess (~2012) area on her back--- performed in [facility] said to be MRSA H/O tubal ligation (~1995) Hx of section (~1991) she was 16 at the time. Hx of cholecystectomy Family History Family/Other Brain aneurysm Diabetes maternal aunt Family history of thyroid problem paternal aunt Father Hypertension Family history of thyroid problem Stroke Hyperchloremia Denies family history of Colon cancer Ovarian cancer Heart disease Breast cancer Uterine cancer Social History Substance/Drug Use: former Date of last use: 13 yrs clean Physical Exam Narrative: EXAM NARRATIVE: General: Alert, no acute distress. Skin: warm and dry Head: Normocephalic Neck: Trachea midline Eye: Extraocular movements are intact. Ears, nose, mouth and throat: Oral mucosa moist Respiratory: Respirations are non-labored Musculoskeletal: Normal ROM Neurological: Alert and oriented to person, place, time, and situation, No focal neurological deficit observed. Psychiatric: Cooperative, appropriate mood & affect. Course Vital Signs: Vital signs: Vital Signs Temperature 98.4 F 11/18/23 12:13 Pulse Rate 71 11/18/23 13:45 Respiratory Rate 17 11/18/23 12:13 Blood Pressure 123/81 11/18/23 13:45 Pulse Oximetry 98 11/18/23 13:45 Oxygen Delivery Me thod Room Air 11/18/23 13:45 MDM - Headache Medical Decision Making Medical decision making: Differential diagnosis including but not limited to and based on the above HPI, review of systems and physical exam: Patient has had fairly extensive workup for this headache and seems it is likely a migraine, however to rule out intracranial pathology CT of the head was ordered. Orders placed to evaluate differential diagnosis based on the above differential, HPI and physical exam CT head: No acute intracranial process. no intracranial hemorrhage, no evidence of infarct. no evidence of acute fracture.This was reviewed and interpreted by myself the ER physician. All radiology interpretation(s) finalized by discharge Other Data Assessment and plan: - Discharged home - Discussed plan with patient. Answered any questions. - Evaluation and treatment of this problem were appropriate in the emergency setting. Discharge Plan Discharge Patient Disposition: Home Clinical Impression: Headache Condition: Stable Prescriptions: No Action lisinopril 10 mg tablet 10 mg PO DAILY cetirizine 10 mg tablet,chewable 10 mg PO DAILY famotidine 10 mg tablet 10 mg PO DAILY Discharge Orders: Discharge ED (Routine); Ordered 11/18/23 Ordered By: Aarti Church Referrals: Margo Mcgraw APN [Primary Care Provider] - (You have been screened and evaluated and felt safe for discharge. Health conditions do change or evolve sometimes and as such it is important that you follow up with your Primary Doctor to be re checked, 3-5 days is a general good time frame for follow up. 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
[2023-11-18 13:45] VITALS: BP 123/81; PULSE 71; O2SAT 98
[2023-11-18 14:10] VITALS: BP 128/86; PULSE 74; O2SAT 98
== END 2023-11-18 14:12 | disposition home or self-care (01) ==
PROVIDERS: Emergency Provider Emergency Medicine; PCP Nurse Practitioner Family
DX: R51.9 Headache, unspecified (principal); Z86.19 Personal history of other infectious and parasitic diseases; I10 Essential (primary) hypertension
CPT/HCPCS: 70450; 99284

== ENCOUNTER → 2024-09-06 09:01 | Outpatient (BNVA) | payer BC, SELFPAY | PROVIDERS: PCP Nurse Practitioner Family; Visit Provider Specialist | DX: S83.207A Unspecified tear of unspecified meniscus, current injury, left knee, initial encounter; M23.42 Loose body in knee, left knee; X58.XXXA Exposure to other specified factors, initial encounter | CPT/HCPCS: 73560; 73565 ==

== ENCOUNTER → 2024-10-11 10:30 | Outpatient (BNVA) | payer BC, SELFPAY | PROVIDERS: PCP Nurse Practitioner Family; Visit Provider Specialist | DX: M17.12 Unilateral primary osteoarthritis, left knee (principal); M23.41 Loose body in knee, right knee | CPT/HCPCS: 73560; 73565 ==

== ENCOUNTER → 2025-01-19 14:33 | Outpatient (BNVA) | payer BC, SELFPAY | PROVIDERS: PCP Nurse Practitioner Family; Visit Provider Nurse Practitioner | DX: M25.571 Pain in right ankle and joints of right foot (principal) | CPT/HCPCS: 73610 ==